=== PATIENT | female | born 1995 | race Caucasian/White ===

== ENCOUNTER 2019-03-08 15:08 | Emergency (ER) | payer MEDICAID, OTHER ==
[2019-03-08] MEDS ORDERED: Acetaminophen 500 MG Tab PO ONE (16:38)
[2019-03-08] MEDS ORDERED: Sodium Chloride 0.9% 1,000 ML IV ONE (16:38)
[2019-03-08] MEDS ORDERED: Metoclopramide 10 MG/2 ML SDV IVPUSH ONE (18:14)
[2019-03-08] MEDS ORDERED: diphenhydrAMINE 50 MG/ML SDV IVPUSH ONE (18:14)
[2019-03-08] MEDS ORDERED: Sodium Chloride 0.9% 500 ML IV SCH (18:15)
[2019-03-08 18:39] LABS: BLOOD UREA NITROGEN,BUN 11 mg/dL (7.0-18.0); CARBON DIOXIDE,CO2 20.8 mmol/L (21.0-32.0); CHLORIDE,CL 104 mmol/L (98-107); GLUCOSE RANDOM 95 mg/dL (74-106); POTASSIUM,K 4.2 mmol/L (3.5-5.1); SODIUM,NA 138 mmol/L (136-145)
--- NOTE | 2019-03-08 19:02 | EDM.PDOC ---
ED HPI GENERAL MEDICAL PROBLEM - General Chief Complaint: General Stated Complaint: cramps;migraines Time Seen by Provider: 03/08/19 15:17 - History of Present Illness INITIAL COMMENTS - FREE TEXT/NARRATIVE: HPI 24-year-old female presents for evaluation of 3 weeks of poorly characterized apparently gradual onset headache that is new in nature from previous headaches and has been responsive to ibuprofen and refractory to acetaminophen. Patient recently noted that she is after having her last period greater than 1- 2 months ago (patient unsure of the exact LMP day). After learning of her the patient stopped using ibuprofen. Patient is also mild sinus congestion and sore throat of several days duration. Patient also notes infrequent pelvic cramps without vaginal discharge, discomfort, urinary frequency, or dysuria. * Denies changes in vision or hearing, fevers, neck stiffness, rashes, neck pain , temporal pain, jaw pain with chewing, dental pain, minor neck trauma, chiropractic manipulation, or head trauma. * Denies anticoagulation or hypercoaguable history. * Unable to identify any higher risk exposures to possible carbon monoxide. M/S/F/SocHx notable for: please see HPI; remainder reviewed with patient and in chart. ROS: Negative constitutional, eye, cardiovascular, pulmonary, GI, , MSK, skin , neurologic, psychiatric, endocrine unless noted in the HPI. Exam HR 82, RR 16, BP 111/76, T 37.0C, SaO2 98% on room air. Gen: Pleasant, non-toxic appearing, resting comfortably. HEENT: NC, AT, TMs clear bilaterally without effusions, erythema, or lesions, preauricular, pinna, and external canal skin without lesions. Dentition with multiple caries. No frontal or maxillary sinus TTP. Temples without TTP bilaterally, equal 2+ temporal artery pulses. No paraspinal posterior neck pain. Resp: clear to auscultation bilaterally. Card: RRR GI: NT/ND : no suprapubic tenderness to palpation, no intrauterine appreciate a [id number] ultrasound. No free fluid. MSK: No visible deformities, strength and tone WNL. Skin: Normal color with no visible lesions. Neuro: alert and oriented 3, no facial asymmetry, no gaze preference, no slurring of speech. CN II-III: pupils equal and reactive (3->2mm bilaterally); III, IV, : EOMI, V1-V3: sensation to touch bilaterally intact; VII: no facial asymmetry (frown / smile); VIII: no nystagmus; X: phonation intact, uvula midline; XI: trapezius 5/5 bilaterally, XII: tongue midline. Psych: Mood and affect appropriate. Labs / Imaging (pertinent): WBC 7.14, HB 14.9, d-dimer 0.40, sodium 138, potassium 4.2, hCG 2,435. UA - negative nitrate, negative leukocyte esterase. CT Head: pending. MDM Previous chart, nursing note, and vitals reviewed. A: 24-year-old female presents for evaluation of 3 weeks of poorly characterized apparently gradual onset headache that is new in nature from previous headaches and has been responsive to ibuprofen and refractory to acetaminophen. DDx: migraine / tension headache, cluster headache, sentinel bleed/SAH, infection ([employer] vs CRUZ secondary to non-[employer] focal infection), tumor/mass effect, hypertensive encephalopathy, glaucoma or iritis, idiopathic intracranial hypertension, cavernous sinus thrombosis, temporal arteritis. Evaluation: * Migraine / tension headache - tentatively suspect a migraine, however given the new onset headache/new in nature nor imaging is warranted, CT head without contrast pending at time of patient care transfer. * Cluster - doubt cluster headache given the absence of unilateral symptoms, eye watering, swelling, or nasal congestion. * [place] bleed/SAH - Doubt given gradual onset. Given similarity of this headache with prior headaches will manage conservatively without imaging. * Infection - Given lack of rash, meningismus, or fever; doubt meningitis. Similarly the history and exam are without evidence of acute otitis media, sinusitis, dental abscesses or clinically significant dental caries. * Mass - imaging pending. * Hypertensive encephalopathy - BP within the brain's autoregulatory zone. * Glaucoma or iritis - As the patient is without reported vision changes, eye pain, and an occular exam without increases in pain on pupillary constriction further evaluation was not pursued. * Idiopathic Intracranial Hypertension - unlikely given the lack of visual symptoms, short duration of symptoms, lack of worsening with valsalva, or more prominent morning symptoms. * Thrombosis - patient without neuro deficits, however given onset of new in nature headache during a d-dimer was obtained, given the NPV of ~99%+ for. * Temporal Arteritis - given lack of temporally localized headache, temporal tenderness or decreased temporal artery pulse, absent history of jaw claudication or vision changes; doubt. ED Course: patient given 1 L NS and 1 g acetaminophen without significant improvement in symptoms. 500 mg NS, 10 mg Reglan, 25 mg diphenhydramine given for further treatment. Disposition: patient care transferred to Dr. Sanchez pending completion of evaluation. Impression: headache. head Pain Score (Numeric/FACES): 10 - Related Data Allergies Allergy/AdvReac Type Severity Reaction Status Date / Time Sulfa (Sulfonamide Allergy Anaphylactic Verified 03/08/19 15:17 Antibiotics) Shock Home Meds: Home Meds . [No Known Home Meds] 03/08/19 [History] Past Medical History - Past Health History Medical/Surgical History: Denies Medical/Surgical History Musculoskeletal History: Reports: Other (See Below) Other Musculoskeletal History: L4 L5 issues Psychiatric History: Reports: Anxiety, Depression - Infectious Disease History Infectious Disease History: Reports: None - Past Surgical History Female Surgical History: Reports: Other (See Below) Other Female Surgeries/Procedures: ruptured ovairan cysts Social & Family History - Family History Family Medical History: Noncontributory - Tobacco Use Smoking Status *Q: Current Every Day Smoker Years of Tobacco use: 10 Packs/Tins Daily: 1 - Caffeine Use Caffeine Use: Reports: None - Recreational Drug Use Recreational Drug Use: No ED ROS GENERAL - Review of Systems Review Of Systems: See Below ED EXAM, GENERAL - Physical Exam Exam: See Below Course - Vital Signs Last Recorded V/S: Last Vital Signs Temp 37.0 C 03/08/19 15:18 Pulse 79 03/08/19 18:07 Resp 18 03/08/19 18:07 BP 112/76 03/08/19 18:07 Pulse Ox 99 03/08/19 18:07 - Orders/Labs/Meds Orders: Active Orders 24 hr Category Date Time Status Head wo Cont [CT] Stat Exams 03/08/19 18:37 Taken Sodium Chloride 0.9% [Normal Saline] 500 ml Med 03/08/19 18:15 Active IV .BOLUS Medication Orders Sodium Chloride (Normal Saline) 500 mls @ 1,000 mls/hr IV .BOLUS ASTON Labs: Laboratory Tests 03/08/19 03/08/19 03/08/19 Range/Units 16:07 16:57 17:27 WBC 7.14 (4.0-11.0) K/uL RBC 5.08 (4.30-5.90) M/uL Hgb 14.9 (12.0-16.0) g/dL Hct 44.2 (36.0-46.0) % MCV 87.0 (80.0-98.0) fL MCH 29.3 (27.0-32.0) pg MCHC 33.7 (31.0-37.0) g/dL RDW Std Deviation 45.8 (28.0-62.0) fl RDW Coeff of Phyllis 14 (11.0-15.0) % Plt Count 334 (150-400) K/uL MPV 10.90 (7.40-12.00) fL Neut % (Auto) 58.6 (48.0-80.0) % Lymph % (Auto) 32.8 (16.0-40.0) % [place] % (Auto) 7.3 (0.0-15.0) % Eos % (Auto) 1.3 (0.0-7.0) % Baso % (Auto) 0.0 (0.0-1.5) % Neut # (Auto) 4.2 (1.4-5.7) K/uL Lymph # (Auto) 2.3 (0.6-2.4) K/uL [place] # (Auto) 0.5 (0.0-0.8) K/uL Eos # (Auto) 0.1 (0.0-0.7) K/uL Baso # (Auto) 0.0 (0.0-0.1) K/uL Nucleated RBC % 0.0 /100WBC Nucleated RBCs # 0 K/uL D-Dimer, Quantitative (0.0-0.50) mg/L FEU Sodium 138 (136-145) mmol/L Potassium 4.2 (3.5-5.1) mmol/L Chloride 104 (98-107) mmol/L Carbon Dioxide 20.8 L (21.0-32.0) mmol/L BUN 11 (7.0-18.0) mg/dL Creatinine 0.8 (0.6-1.0) mg/dL Est Cr Clr Drug Dosing 89.29 mL/min Estimated GFR (MDRD) > 60.0 ml/min Glucose 95 (74-106) mg/dL Calcium 8.8 (8.5-10.1) mg/dL HCG, Quant 2435.0 mIU/mL Urine Color YELLOW Urine Appearance CLEAR Urine pH 6.0 (5.0-8.0) Ur Specific [place] 1.015 (1.001-1.035) Urine Protein NEGATIVE (NEGATIVE) mg/dL Urine Glucose (UA) NEGATIVE (NEGATIVE) mg/dL Urine Ketones NEGATIVE (NEGATIVE) mg/dL Urine Occult Blood NEGATIVE (NEGATIVE) Urine Nitrite NEGATIVE (NEGATIVE) Urine Bilirubin NEGATIVE (NEGATIVE) Urine Urobilinogen 0.2 (<2.0) EU/dL Ur Leukocyte Esterase NEGATIVE (NEGATIVE) 03/08/19 Range/Units 17:27 WBC (4.0-11.0) K/uL RBC (4.30-5.90) M/uL Hgb (12.0-16.0) g/dL Hct (36.0-46.0) % MCV (80.0-98.0) fL MCH (27.0-32.0) pg MCHC (31.0-37.0) g/dL RDW Std Deviation (28.0-62.0) fl RDW Coeff of Phyllis (11.0-15.0) % Plt Count (150-400) K/uL MPV (7.40-12.00) fL Neut % (Auto) (48.0-80.0) % Lymph % (Auto) (16.0-40.0) % [place] % (Auto) (0.0-15.0) % Eos % (Auto) (0.0-7.0) % Baso % (Auto) (0.0-1.5) % Neut # (Auto) (1.4-5.7) K/uL Lymph # (Auto) (0.6-2.4) K/uL [place] # (Auto) (0.0-0.8) K/uL Eos # (Auto) (0.0-0.7) K/uL Baso # (Auto) (0.0-0.1) K/uL Nucleated RBC % /100WBC Nucleated RBCs # K/uL D-Dimer, Quantitative 0.40 (0.0-0.50) mg/L FEU Sodium (136-145) mmol/L Potassium (3.5-5.1) mmol/L Chloride (98-107) mmol/L Carbon Dioxide (21.0-32.0) mmol/L BUN (7.0-18.0) mg/dL Creatinine (0.6-1.0) mg/dL Est Cr Clr Drug Dosing mL/min Estimated GFR (MDRD) ml/min Glucose (74-106) mg/dL Calcium (8.5-10.1) mg/dL HCG, Quant mIU/mL Urine Color Urine Appearance Urine pH (5.0-8.0) Ur Specific [place] (1.001-1.035) Urine Protein (NEGATIVE) mg/dL Urine Glucose (UA) (NEGATIVE) mg/dL Urine Ketones (NEGATIVE) mg/dL Urine Occult Blood (NEGATIVE) Urine Nitrite (NEGATIVE) Urine Bilirubin (NEGATIVE) Urine Urobilinogen (<2.0) EU/dL Ur Leukocyte Esterase (NEGATIVE) Meds: Medications Generic Name Dose Route Start Last Admin Trade Name Freq PRN Reason Stop Dose Admin Sodium Chloride 500 mls @ 1,000 mls/hr 03/08/19 18:15 Normal Saline IV .BOLUS ASTON Discontinued Medications Generic Name Dose Route Start Last Admin Trade Name Freq PRN Reason Stop Dose Admin Acetaminophen 1,000 mg 03/08/19 16:38 03/08/19 17:07 Tylenol Extra Strength PO 03/08/19 16:39 1,000 mg ONETIME ONE Administration Diphenhydramine HCl 25 mg 03/08/19 18:14 Benadryl IVPUSH 03/08/19 18:15 ONETIME ONE Sodium Chloride 1,000 mls @ 1,000 mls/hr 03/08/19 16:38 03/08/19 17:08 Normal Saline IV 03/08/19 17:37 1,000 mls/hr .Bolus ONE Administration Metoclopramide HCl 10 mg 03/08/19 18:14 Reglan IVPUSH 03/08/19 18:15 ONETIME ONE Departure - Departure Time of Disposition: 19:02 Disposition: Still A Patient 30 Clinical Impression: Headache - Discharge Information Referrals: PCP,None [Primary Care Provider] - Sepsis Event Note - Evaluation Sepsis Screening Result: No Definite Risk - Focused Exam Vital Signs: Vital Signs Temp Pulse Resp BP Pulse Ox 03/08/19 18:07 79 18 112/76 99 12/29/19 17:10 82 18 125/88 99 03/08/19 15:18 37.0 C 82 16 111/76 98 Date Exam was Performed: 03/08/19 Time Exam was Performed: 19:01 - My Orders Last 24 Hours: My Active Orders 03/08/19 18:15 Sodium Chloride 0.9% [Normal Saline] 500 ml IV .BOLUS 03/08/19 18:37 Head wo Cont [CT] Stat - Assessment/Plan Last 24 Hours: My Active Orders 03/08/19 18:15 Sodium Chloride 0.9% [Normal Saline] 500 ml IV .BOLUS 03/08/19 18:37 Head wo Cont [CT] Stat
--- NOTE | 2019-03-08 19:11 | CT ---
INDICATION: Migraine. COMPARISON: None available. TECHNIQUE: CT examination of the head was performed with 3 mm thick axial sections without intravenous contrast. Images were obtained from the vertex of the skull through the skull base, and I examined the images with the brain and bone windows. Please note that all CT scans at this facility use dose modulation, iterative reconstruction, and/or weight-based dosing when appropriate to reduce radiation dose to as low as reasonably achievable. FINDINGS: : The brain is normal in appearance for the patient`s age on today`s study, with no sign of mass lesion, mass effect, hemorrhage, or edema. The ventricles and sulci are normal in appearance for the patient`s age. The visualized portions of the orbits are normal in appearance. The visualized portions of the paranasal sinuses and mastoids are clear. The osseous structures are normal in their appearance with no sign of abnormality in the skull base or calvarium. IMPRESSION: Normal noncontrast CT of the head for the patient`s age. Nothing seen to correlate with the history of headache. Please note that all CT scans at this facility use dose modulation, iterative reconstruction, and/or weight-based dosing when appropriate to reduce radiation dose to as low as reasonably achievable. Dictated by Angel Guevara MD @ Mar 08 2019 7:06PM Signed by Dr. Angel Guevara @ Mar 08 2019 7:09PM
== END 2019-03-08 22:17 | disposition home or self-care (01) ==
LOC: MW.ED 15:08
DX: G44.209 Tension-type headache, unspecified, not intractable (principal); F17.210 Nicotine dependence, cigarettes, uncomplicated; Z88.2 Allergy status to sulfonamides
CPT/HCPCS: 70450; 80048; 81003; 84702; 85025; 85379; 87804; 96361; 96374; 96375; 99284; A9270; J1200; J2765; J7030; J7040; 99283

== ENCOUNTER 2019-03-10 07:13 | Emergency (ER) | payer MEDICAID ==
--- NOTE | 2019-03-10 07:43 | EDM.PDOC ---
ED [facility] GENERAL MEDICAL PROBLEM - General Chief Complaint: General Stated Complaint: TOOTH PAIN Time Seen by Provider: 03/10/19 07:32 - History of Present Illness INITIAL COMMENTS - FREE TEXT/NARRATIVE: HPI 24-year-old female at an roughly estimated 6 weeks gestation presents for evaluation of 3 months of dental pain refractory to ibuprofen and acetaminophen. Patient is aware that ibuprofen is relatively contraindicated in but has been experiencing ongoing pain and taking limited ibuprofen. Denies changes in vision or hearing, fevers, neck stiffness, difficulty swallowing. Has not seen a dentist. No current dental appointments. Triage note: Pt states that she has had dental pain for the last 3 months but today she has pain 10\10. M/S/F/SocHx notable for: please see HPI; remainder reviewed with patient and in chart. ROS: Negative constitutional, eye, cardiovascular, pulmonary, GI, , MSK, skin , neurologic, psychiatric, endocrine unless noted in the HPI. Exam HR 90, RR 16, BP 132/84, T 37.1C, SaO2 90% on room air. Gen: Pleasant, non-toxic appearing, resting comfortably HEENT: NC, AT, PEERL, EOMI. Mouth: globally poor dentition, grossly visible caries and tooth deformity on posterior most left maxillary molar, no surrounding gumline swelling or abscess , floor of the mouth soft without swelling or tongue elevation, no peritonsilar swelling bilaterally, uvula midline, moist mucus membranes without lesions, tongue without plaques or lesions,gumline without significant ulcerations, no bleeding, no marked halitosis. Neck: Supple with a full range of motion, no swelling, no cervical lymphdenopathy, no difficulty swallowing. Resp: Clear to auscultation bilaterally, normal work of breathing, no accessory muscle usage. Card: Regular rate and rhythm with no murmurs, rubs, or gallops, extremities warm and well perfused. GI: non-distended MSK: No visible deformities, strength and tone without visually appreciable deficit. Skin: Normal color with no visible lesions. Neuro: alert and oriented 3, no facial asymmetry, vision and hearing WNL. Psych: Mood and affect appropriate. MDM Previous chart, nursing note, and vitals reviewed. A: 24-year-old female at an roughly estimated 6 weeks gestation presents for evaluation of 3 months of dental pain refractory to ibuprofen and acetaminophen. DDX: caries, pulpitis, gingivitis, periodontitis, periapical abscess, jaw osteomyelitis, Ludgwig's angina, acute necrotizing gingivitis. ED Course: Reassuringly, the patients exam is without findings consistent with Ludwigs angina, nor were there evidence of clinically significant abscesses. The gumline was without gross abnormalities. Suspect the patients dental pain is secondary to the poor dentition, caries, and a likely periapical abscess. As the patient is not presently intending to seek dental care in the mid to near future opiate analgesics are not appropriate, the patient was instructed to use OTC pain medications, was prescribed 10 days of cephalexin 500 mg q6h and was provided with a list of low cost area dental services. Impression: Dental Pain L teeth Pain Score (Numeric/FACES): 10 - Related Data Allergies Allergy/AdvReac Type Severity Reaction Status Date / Time Sulfa (Sulfonamide Allergy Anaphylactic Verified 03/10/19 07:23 Antibiotics) Shock Home Meds: Home Meds cephALEXin [Keflex] 500 mg PO Q6H #40 cap 03/10/19 [Rx] Past Medical History - Past Health History Medical/Surgical History: Denies Medical/Surgical History [employer] History: Reports: Musculoskeletal History: Reports: Other (See Below) Other Musculoskeletal History: L4 L5 issues Psychiatric History: Reports: Anxiety, Depression - Infectious Disease History Infectious Disease History: Reports: None - Past Surgical History Female Surgical History: Reports: Other (See Below) Other Female Surgeries/Procedures: ruptured ovairan cysts Social & Family History - Family History Family Medical History: Noncontributory - Tobacco Use Smoking Status *Q: Current Every Day Smoker Years of Tobacco use: 10 Packs/Tins Daily: 0.5 - Caffeine Use Caffeine Use: Reports: None - Recreational Drug Use Recreational Drug Use: No ED ROS GENERAL - Review of Systems Review Of Systems: See Below ED EXAM, GENERAL - Physical Exam Exam: See Below Course - Vital Signs Last Recorded V/S: Last Vital Signs Temp 37.1 C 03/10/19 07:23 Pulse 90 03/10/19 07:23 Resp 16 03/10/19 07:23 BP 132/84 03/10/19 07:23 Pulse Ox 98 03/10/19 07:23 Departure - Departure Time of Disposition: 07:41 Disposition: Home, Self-Care 01 Clinical Impression: Pain, dental - Discharge Information Prescriptions: cephALEXin [Keflex] 500 mg PO Q6H #40 cap Referrals: PCP,None [Primary Care Provider] - Additional Instructions: You were in seen in the [facility] Emergency Department for evaluation of dental pain. Please read and follow all of the instructions below. Please use acetaminophen for treatment of pain. Do not use more than instructed to use - this will not reduce your pain and it will increase the risk of ulcers , liver failure, kidney injury, and other serious side effects. Unfortunately, stronger pain medications such as narcotics could not be prescribed today as it is not appropriate to use these medications to indefinitely mask untreated serious medical conditions - THE MOST APPROPRIATE TREATMENT FOR YOUR CONDITION IS PROMPT DENTAL CARE. YOUR DENTAL PAIN WILL NOT GET BETTER UNTIL YOU ARE TREATED BY A DENTIST. If left untreated your infection can worsen and may become life threatening. Please return to the emergency department if you develop any of the following: fevers, chills, neck stiffness, difficulty swallowing, difficulty breathing, headaches, changes in vision or hearing, or if you are otherwise concerned about your health. PLEASE FOLLOW UP WITHIN 24 HOURS WITH A DENTIST. If you have any new symptoms or if you are at all concerned about your health please return immediately to the emergency department. When calling for follow-up care, please make the office aware that this follow- up is from your recent emergency room visit. If for any reason you are refused follow-up, please contact the [facility] Emergency Department at and asked to speak to the emergency department charge nurse. Your care today was limited to identifying and treating emergent medical problems only. Many people have subtle differences in their test results that require follow up with their outpatient physician(s) to correctly determine if this represents a normal variation or concerning abnormality with respect to your specific health. The care given to you today was limited to identifying and treating emergent medical problems - you need to request a copy of all of your medical records from today's visit and follow up with your outpatient physician(s) to review both today's visit and your overall health. If you have any new symptoms or if you are at all concerned about your health please return immediately to the emergency department. Prescriptions: If you are uninsured or have financial difficulties with filling your prescription(s), you may consider using a free pharmacy discount service such as [employer] ([employer]) or [employer] ([employer]). These services allow you to search for a medication on your phone (or computer) and obtain a coupon that usually has a significant discount from the list camacho at a pharmacy. Your physician as well as [facility] does not have a financial relationship with either of these services. You may also wish to speak with your physician to determine if lower cost prescriptions are possible. Obtaining primary care: 1. [facility] provides pediatrics (children), family medicine (children, adults, and some obstetrical care), and internal medicine (adults). Further specialty care is also available. Same day appointments are available. They may be contacted at [phone] and are open Saturday through Saturday 8 AM to 5 PM. The [facility] are located at [facility], [address] [place] [address]. 2. [facility] offers family medicine, internal medicine, women health, and further specialty care. [facility] may be contacted at [phone]. [facility] is located at [address] [facility] [address]. 3. If you have health insurance, please also contact your insurer for a list of accepting providers under your policy, you may contact these providers for further health care. Occupational health: Work related injuries may consider following up with [facility], . Occupational health services are located at [address] [place] [id number] and are open Saturday through Saturday from 7: 30 am to 5:00 pm. Obstetrical and Gynecological Care: [facility], , Saturday through Saturday 8 AM to 5 PM. [address] [address]. Eyecare: If you have an eye injury you should follow up with your warehouse puller or with [facility], at [phone] or [phone] , they are located at [address] [place] [address]. Acetaminophen (Tylenol) Please take 1,000 mg every 6 hours as needed for pain. Do no use with alcohol or other acetaminophen containing medications. SIDE EFFECTS: This drug usually has no side effects. If you do not have liver problems, the maximum dose of acetaminophen for adults is 4 grams per day (4000 milligrams). Taking more than the maximum daily amount may cause serious ( possibly fatal) liver damage. Get medical help right away if you have any of the following symptoms of liver damage: persistent nausea/vomiting, extreme tiredness, stomach/abdominal pain, yellowing eyes/skin, dark urine. If you have liver problems, consult your doctor or pharmacist for a safe dosage of this medication. A very serious allergic reaction to this drug is rare. However, get medical help right away if you notice any symptoms of a serious allergic reaction, including: rash, itching/swelling (especially of the face/tongue/ throat), severe dizziness, trouble breathing. This is not a complete list of possible side effects. If you notice other effects not listed above, contact your doctor or pharmacist. Cephalexin (Brand Name: Keflex) Take as directed on the prescription. Take the full prescribed course of medications. SIDE EFFECTS: Diarrhea, dizziness, headache, or stomach upset may occur. If any of these effects persist or worsen, tell your doctor or pharmacist promptly. Tell your doctor immediately if any of these rare but very serious side effects occur: severe stomach/abdominal pain, persistent nausea/vomiting, yellowing eyes /skin, dark urine, change in the amount of urine, new signs of infection (e.g., fever, persistent sore throat), easy bruising/bleeding, mental/mood changes ( e.g., agitation, confusion). This medication may rarely cause a severe intestinal condition (Clostridium difficile-associated diarrhea) due to a resistant bacteria. This condition may occur during treatment or weeks to months after treatment has stopped. Tell your doctor immediately if you develop persistent diarrhea, abdominal or stomach pain/cramping, blood/mucus in your stool. Do not use anti-diarrhea products or narcotic pain medications if you have any of these symptoms because these products may make them worse. Use of this medication for prolonged or repeated periods may result in oral thrush or a new vaginal yeast infection. Contact your doctor if you notice white patches in your mouth, a change in vaginal discharge, or other new symptoms. A very serious allergic reaction to this drug is rare. However, seek immediate medical attention if you notice any symptoms of a serious allergic reaction, including: rash, itching/swelling (especially of the face/tongue/throat), severe dizziness , trouble breathing. This is not a complete list of possible side effects. If you notice other effects not listed above, contact your doctor or pharmacist. PRECAUTIONS: Before taking cephalexin, tell your doctor or pharmacist if you are allergic to it; or to penicillins or other cephalosporins (e.g., cefpodoxime ); or if you have any other allergies. This product may contain inactive ingredients, which can cause allergic reactions or other problems. Talk to your pharmacist for more details. Before using this medication, tell your doctor or pharmacist your medical history, especially of: kidney disease, stomach/ intestinal disease (e.g., colitis). This drug may make you dizzy. Do not drive, use machinery, or do any activity that requires alertness until you are sure you can perform such activities safely. Limit alcoholic beverages. The liquid form of this product may contain sugar. Caution is advised if you have diabetes. Ask your doctor or pharmacist about using this product safely. Kidney function declines as you grow older. This medication is removed by the kidneys. Therefore, older adults may be at greater risk for side effects while using this drug. During , this medication should be used only when clearly needed. Discuss the risks and benefits with your doctor. This medication passes into breast milk. Consult your doctor before breast-feeding. DRUG INTERACTIONS: Your doctor or pharmacist may already be aware of any possible drug interactions and may be monitoring you for them. Do not start, stop, or change the dosage of any medicine before checking with them first. Before using this medication, tell your doctor or pharmacist of all prescription and nonprescription/herbal products you may use, especially of: vaccines that contain live bacteria (e.g., typhoid, BCG), metformin, probenecid. This medication may decrease the effectiveness of combination-type control pills. This can result in . You may need to use an additional form of reliable control while using this medication. Consult your doctor or pharmacist for details. This medication may interfere with certain laboratory tests (including Marielena' test, certain urine glucose tests), possibly causing false test results. Make sure laboratory personnel and all your doctors know you use this drug. This document does not contain all possible interactions. Therefore, before using this product, tell your doctor or pharmacist of all the products you use. Keep a list of all your medications with you, and share the list with your doctor and pharmacist. Sepsis Event Note - Evaluation Sepsis Screening Result: No Definite Risk - Focused Exam Vital Signs: Vital Signs Temp Pulse Resp BP Pulse Ox 03/10/19 07:23 37.1 C 90 16 132/84 98 Date Exam was Performed: 03/10/19 Time Exam was Performed: 07:41
== END 2019-03-10 08:07 | disposition home or self-care (01) ==
LOC: MW.ED 07:13
CPT/HCPCS: 99282

== ENCOUNTER 2019-03-28 19:10 | Emergency (ER) | payer OTHER ==
--- NOTE | 2019-03-28 19:18 | EDM.PDOC ---
ED HPI GENERAL MEDICAL PROBLEM - General Chief Complaint: General Stated Complaint: SICK Time Seen by Provider: 03/28/19 19:17 Source of Information: Reports: Patient History Limitations: Reports: No Limitations - History of Present Illness INITIAL COMMENTS - FREE TEXT/NARRATIVE: HISTORY AND PHYSICAL: History of present illness: Patient is a 24-year-old female who presents to the emergency room with complaints of dry nonproductive cough, generalized nausea with infrequent vomiting and nasal pressure/drainage. She reports that symptoms started approximately a week and a half ago, shortly after starting a round of Keflex for a dental abscess. States she did not feel any improvement with her respiratory symptoms after finalizing the Keflex although felt her dental concerns have helped. She states she is approximately 5 weeks . She denies any abdominal pain, vaginal bleeding/discharge or concerns related to her . She is planning on seeing Dr. Anderson, in 2 to 3 weeks for her initial OB appointment. Patient denies any fever, chills, headache, change in vision, syncope or near syncope. Denies any chest pain, back pain, shortness of breath. Denies any abdominal pain, diarrhea, constipation or dysuria. Has not noted any blood in urine or stool. Patient has been eating and drinking appropriately. She reports that she previously was a smoker but since finding out she is she quit. Review of systems: As per history of present illness and below otherwise all systems reviewed and negative. Past medical history: As per history of present illness and as reviewed below otherwise noncontributory. Surgical history: As per history of present illness and as reviewed below otherwise noncontributory. Social history: See social history for further information Family history: As per history of present illness and as reviewed below otherwise noncontributory. Physical exam: General: Well-developed and well-nourished 24-year-old female. Alert and oriented. Nontoxic-appearing and in no acute distress. HEENT: Atraumatic, normocephalic, pupils equal and reactive bilaterally, negative for conjunctival pallor or scleral icterus, mucous membranes moist, TMs normal bilaterally, throat clear, neck supple, nontender, trachea midline. No drooling or trismus noted. No meningeal signs. No hot potato voice noted. Lungs: Clear to auscultation, breath sounds equal bilaterally, chest nontender. Breathes easily. Heart: S1S2, regular rate and rhythm without overt murmur Abdomen: Soft, nondistended, nontender. Negative for masses or hepatosplenomegaly. Negative for costovertebral tenderness. Skin: Intact, warm, dry. No lesions or rashes noted. Extremities: Atraumatic, moves all extremities per self without difficulty or deficits, negative for cords or calf pain. Neurovascular unremarkable. Neuro: Awake, alert, oriented. Cranial nerves II through XII unremarkable. Cerebellum unremarkable. Motor and sensory unremarkable throughout. Exam nonfocal. Notes: My physical exam is within normal limits. She is aware of risks of doing x- rays while , she declines wanting an x-ray at this time as her lung sounds are clear and oxygen saturation is within normal limits. Diagnostics are unremarkable. Supportive care measures were reviewed and discussed. Voices understanding and is agreeable to plan of care. Denies any further questions or concerns at this time. Diagnostics: CBC, BMP, influenza, UA Therapeutics: IV fluid, Zofran Prescription: Pro-Air Inhaler Impression: URI, likely viral Plan: 1. Please start and/or continue to take your vitamin with folic acid once daily. 2. Labs are unremarkable. Negative influenza. 3. Tylenol as needed for pain management. 4. 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 Return to the ED as needed and as discussed. Definitive disposition and diagnosis as appropriate pending reevaluation and review of above. 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 PRESS OPERATOR History: Reports: Musculoskeletal History: Reports: Other (See Below) Other Musculoskeletal History: L4 L5 issues Psychiatric History: Reports: Anxiety, Depression - Infectious Disease History Infectious Disease History: Reports: None - Past Surgical History Female Surgical History: Reports: Other (See Below) Other Female Surgeries/Procedures: ruptured ovairan cysts Social & Family History - Family History Family Medical History: Noncontributory - Caffeine Use Caffeine Use: Reports: None ED ROS GENERAL - Review of Systems Review Of Systems: Comprehensive ROS is negative, except as noted in HPI. ED EXAM, GENERAL - Physical Exam Exam: See Below (See dictation) Course - Vital Signs Last Recorded V/S: Last Vital Signs Temp 98.2 F 03/28/19 19:24 Pulse 74 03/28/19 19:24 Resp 16 03/28/19 19:24 BP 129/78 03/28/19 19:24 Pulse Ox 99 03/28/19 19:24 - Orders/Labs/Meds Labs: Laboratory Tests 03/28/19 03/28/19 03/28/19 Range/Units 19:40 19:40 20:30 WBC 11.27 H (4.0-11.0) K/uL RBC 4.69 (4.30-5.90) M/uL Hgb 14.0 (12.0-16.0) g/dL Hct 40.6 (36.0-46.0) % MCV 86.6 (80.0-98.0) fL MCH 29.9 (27.0-32.0) pg MCHC 34.5 (31.0-37.0) g/dL RDW Std Deviation 42.3 (28.0-62.0) fl RDW Coeff of Phyllis 14 (11.0-15.0) % Plt Count 289 (150-400) K/uL MPV 10.10 (7.40-12.00) fL Neut % (Auto) 67.5 (48.0-80.0) % Lymph % (Auto) 24.6 (16.0-40.0) % [place] % (Auto) 6.6 (0.0-15.0) % Eos % (Auto) 1.2 (0.0-7.0) % Baso % (Auto) 0.1 (0.0-1.5) % Neut # (Auto) 7.6 H (1.4-5.7) K/uL Lymph # (Auto) 2.8 H (0.6-2.4) K/uL [place] # (Auto) 0.7 (0.0-0.8) K/uL Eos # (Auto) 0.1 (0.0-0.7) K/uL Baso # (Auto) 0.0 (0.0-0.1) K/uL Nucleated RBC % 0.0 /100WBC Nucleated RBCs # 0 K/uL Sodium 140 (136-145) mmol/L Potassium 4.0 (3.5-5.1) mmol/L Chloride 104 (98-107) mmol/L Carbon Dioxide 23.2 (21.0-32.0) mmol/L BUN 14 (7.0-18.0) mg/dL Creatinine 0.7 (0.6-1.0) mg/dL Est Cr Clr Drug Dosing 107.01 mL/min Estimated GFR (MDRD) > 60.0 ml/min Glucose 95 (74-106) mg/dL Calcium 9.0 (8.5-10.1) mg/dL Urine Color YELLOW Urine Appearance CLEAR Urine pH 6.0 (5.0-8.0) Ur Specific [place] 1.025 (1.001-1.035) Urine Protein NEGATIVE (NEGATIVE) mg/dL Urine Glucose (UA) NEGATIVE (NEGATIVE) mg/dL Urine Ketones NEGATIVE (NEGATIVE) mg/dL Urine Occult Blood NEGATIVE (NEGATIVE) Urine Nitrite NEGATIVE (NEGATIVE) Urine Bilirubin NEGATIVE (NEGATIVE) Urine Urobilinogen 0.2 (<2.0) EU/dL Ur Leukocyte Esterase NEGATIVE (NEGATIVE) Meds: Medications Discontinued Medications Generic Name Dose Route Start Last Admin Trade Name Freq PRN Reason Stop Dose Admin Sodium Chloride 1,000 mls @ 999 mls/hr 03/28/19 19:26 03/28/19 19:49 Normal Saline IV 03/28/19 20:26 999 mls/hr STAT ONE Administration Ondansetron HCl 4 mg 03/28/19 19:26 03/28/19 19:49 Zofran IVPUSH 03/28/19 19:27 4 mg ONETIME ONE Administration Departure - Departure Time of Disposition: 20:40 Disposition: Home, Self-Care 01 Clinical Impression: URI (upper respiratory infection) Qualifiers: URI type: unspecified viral URI Qualified Code(s): J06.9 - Acute upper respiratory infection, unspecified - Discharge Information Prescriptions: Ondansetron [Zofran] 4 mg PO Q8H PRN #15 tab PRN Reason: Nausea Instructions: Viral Respiratory Infection, [id number] Referrals: PCP,Not In Area [Primary Care Provider] - Forms: ED Department Discharge Additional Instructions: The following information is given to patients seen in the emergency department who are being discharged to home. This information is to outline your options for follow-up care. We provide all patients seen in our emergency department with a follow-up referral. The need for follow-up, as well as the timing and circumstances, are variable depending upon the specifics of your emergency department visit. If you don't have a primary care physician on staff, we will provide you with a referral. We always advise you to contact your personal physician following an emergency department visit to inform them of the circumstance of the visit and for follow-up with them and/or the need for any referrals to a consulting specialist. The emergency department will also refer you to a specialist when appropriate. This referral assures that you have the opportunity for follow-up care with a specialist. All of these measure are taken in an effort to provide you with optimal care, which includes your follow-up. Under all circumstances we always encourage you to contact your private physician who remains a resource for coordinating your care. When calling for follow-up care, please make the office aware that this follow-up is from your recent emergency room visit. If for any reason you are refused follow-up, please contact the [facility] at and asked to speak to the emergency department charge nurse. [facility] [address] [place] [id number] [facility] [address] [place] [id number] 1. Please start and/or continue to take your vitamin with folic acid once daily. 2. Labs are unremarkable. Negative influenza. 3. Tylenol as needed for pain management. Zofran for nausea - available to brass pickler at [place] pharmacy if needed. 4. 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 Return to the ED as needed and as discussed. Sepsis Event Note - Focused Exam Vital Signs: Vital Signs Temp Pulse Resp BP Pulse Ox 03/28/19 19:24 98.2 F 74 16 129/78 99 Date Exam was Performed: 03/28/19 Time Exam was Performed: 20:39
[2019-03-28] MEDS ORDERED: Ondansetron 4 MG/2 ML SDV IVPUSH ONE (19:26)
[2019-03-28] MEDS ORDERED: Sodium Chloride 0.9% 1,000 ML IV ONE (19:26)
[2019-03-28 20:05] LABS: BLOOD UREA NITROGEN,BUN 14 mg/dL (7.0-18.0); CARBON DIOXIDE,CO2 23.2 mmol/L (21.0-32.0); CHLORIDE,CL 104 mmol/L (98-107); GLUCOSE RANDOM 95 mg/dL (74-106); SODIUM,NA 140 mmol/L (136-145)
== END 2019-03-28 21:10 | disposition home or self-care (01) ==
LOC: MW.ED 19:10
DX: J06.9 Acute upper respiratory infection, unspecified (principal)
CPT/HCPCS: 80048; 81003; 85025; 87804; 96361; 96374; 99284; J2405; J7030

== ENCOUNTER 2019-05-05 23:20 | Emergency (ER) | payer BC ==
[2019-05-05] MEDS ORDERED: Acetaminophen 325 MG Tab PO ONE (23:53)
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
== END 2019-05-06 01:36 | disposition home or self-care (01) ==
LOC: MW.ED 23:20
DX: S09.90XA Unspecified injury of head, initial encounter (principal); S63.502A Unspecified sprain of left wrist, initial encounter; M54.9 Dorsalgia, unspecified; Z88.2 Allergy status to sulfonamides; F17.210 Nicotine dependence, cigarettes, uncomplicated; Y04.8XXA Assault by other bodily force, initial encounter
CPT/HCPCS: 73090; 73120; 99284; A9270; 99283